=== PATIENT | female | born 1945 | race Caucasian/White ===

== ENCOUNTER 2016-12-26 12:08 | Emergency (ER) | payer OTHER ==
[~2016-12-26] VITALS: Ht 154.9 cm; Wt 72.6 kg
--- NOTE | ~2016-12-26 | CR281 ---
[facility] A Service of [facility] & [facility] RADIOLOGY TEXT RESULTS PATIENT: YAMILKA CASTLE LOCATION: [facility] : 43 UNIT #: [id number] AGE: [address]: Sayra Harkins SEX: F ORDER DR: [id number] [facility] [address] [place], [place] [address] [id number] E MR#: [id number] Acc #: [id number] NAME: YAMILKA CASTLE : 1945 SEX: F STUDY DATE/TIME: 12/26/2016 13:05 UNIT: [facility] ROOM: STUDY DESCRIPTION: CR Wrist Min 3 View Lt Attending Physician: Sayra Harkins Pa-C Ordering Physician: Ed Zia Fuentes M.D. Primary Care Physician: Franklin Ralph M.D. MEDICAL IMAGING REPORT This report is preliminary unless electronic signature is present EXAM Left wrist series, 12/26/2016. HISTORY Trauma. Pain today. Patient fell. Left hand/left wrist pain. FINDINGS AP lateral and oblique radiographs the left wrist are presented. Complete probably slightly comminuted transverse/oblique fracture involving the distal radius. The fracture fragment measures approximately 2.5 cm x 1.5 cm. There is a dominant longitudinal fracture plane extending into the mid to ulnar aspect of the radial articular surface. There may be smaller less pronounced fracture planes entering the more radial and anterior aspects of the radial articular surface. The dominant fracture fragment is slightly displaced proximally by about a millimeter. There is no significant distraction of fracture fragments. There may be some mild anterior angulation of the dominant distal radial fragment. The proximal carpal row remains aligned with the radial articular surface. No other fractures are seen. Generalized bony demineralization. Moderate degenerative change basal joint of thumb. Soft tissue swelling around the wrist but no soft tissue defect, subcutaneous air or subcutaneous radiodense foreign body. Please see associated hand series for additional assessment. Dictated by... Primo Resendiz M.D. THIS IS AN ELECTRONICALLY VERIFIED REPORT Primo Resendiz M.D. at 12/28/2016 10:02 PM BRIDGER/della [facility] A Service of [facility] & [facility] RADIOLOGY TEXT RESULTS PATIENT: YAMILKA CASTLE LOCATION: [facility] : 44 UNIT #: [id number] AGE: [address]: Sayra Harkins SEX: F ORDER DR: TD: 12/26/2016 20:54 JOB #: [id number] MEDICAL IMAGING REPORT Page 1 of 1 COPY
--- NOTE | ~2016-12-26 | CR141 ---
[facility] A Service of [facility] RADIOLOGY TEXT RESULTS PATIENT: YAMILKA CASTLE LOCATION: [place] : 44 UNIT #: [id number] AGE: [address]: Sayra Harkins SEX: F ORDER DR: [id number] [facility] [address] [place], [place] [address] [id number] E MR#: [id number] Acc #: [id number] NAME: YAMILKA CASTLE. : 1945 SEX: F STUDY DATE/TIME: 12/26/2016 13:04 UNIT: [facility] ROOM: STUDY DESCRIPTION: CR Hand Min 3 Views Lt Attending Physician: Sayra aHrkins Pa-C Ordering Physician: Brendan Fuentes M.D. Primary Care Physician: Franklin Ralph M.D. MEDICAL IMAGING REPORT This report is preliminary unless electronic signature is present EXAM Left hand series, 12/26/2016. HISTORY Trauma. Today. Patient fell. Pain left hand/wrist. FINDINGS AP, lateral, oblique radiographs of the left hand are presented. Patient unable to remove ring from 4th digit. A portion of the proximal phalanx is obscured on all views. Generalized bony demineralization. Mildly comminuted complete distal radial fracture. There is a dominant transverse/oblique fracture plane about 1.7 cm from the radial articular surface. I believe there is a longitudinal fracture plane along the mid to ulnar aspect of the radial articular surface. The dominant radial fracture fragment may be slightly depressed approximately by about a millimeter. It is angled slightly anteriorly. No significant distraction. On the lateral view, there are faint 1-2 mm linear calcifications projecting along the posterior aspect of the proximal carpal row. I see no specific fracture donor sites for these calcifications but they could represent small chip fractures from the distal radius. The carpal bones, themselves appear intact. [id number] degenerative change at basal joint of thumb. Tomz-zb-ippgoktr generalized narrowing of the interphalangeal joint spaces. Soft tissue swelling at the wrist, most pronounced posteriorly. Soft tissue swelling 4th digit distal to the patient's ring, likely chronic in time course. Correlate with exam. Dictated by... Primo Resendiz M.D. [facility]. [facility] A Service of [facility] RADIOLOGY TEXT RESULTS PATIENT: YAMILKA CASTLE LOCATION: [facility] #: [id number] : 43 UNIT #: [id number] AGE: [address]: Sayra Harkins SEX: F ORDER DR: THIS IS AN ELECTRONICALLY VERIFIED REPORT Primo Resendiz M.D. at 12/28/2016 10:02 PM [place] TD: 12/26/2016 20:31 JOB #: [id number] MEDICAL IMAGING REPORT Page 1 of 1 COPY
--- NOTE | ~2016-12-26 | CT71 ---
[facility] A Service [facility][1] RADIOLOGY TEXT RESULTS PATIENT: YAMILKA CASTLE LOCATION: [facility] : 44 UNIT #: [id number] AGE: [address]: Sayra Harkins SEX: F ORDER DR: [id number] [id number] [facility] [place], [place] [address] [id number] E MR#: [id number] Acc #: [id number] NAME: YAMILKA CASTLE. : 1945 SEX: F STUDY DATE/TIME: 12/26/2016 14:49 UNIT: [facility] ROOM: STUDY DESCRIPTION: CT Head Wo Contrast Attending Physician: Sayra Harkins Pa-C Ordering Physician: Ed Doctor [id number] [facility] Primary Care Physician: Franklin Ralph M.D. MEDICAL IMAGING REPORT This report is preliminary unless electronic signature is present EXAM Head CT without contrast COMPARISON 04/12/2009 HISTORY Patient fell with head injury this afternoon. TECHNIQUE Axial images were obtained without contrast. This CT exam was performed with one or more of the following radiation dose reduction techniques: automatic exposure control, adjustment of mA and/or kV according to patient size, and iterative reconstruction. FINDINGS Mild chronic ischemic changes are seen around ventricles. There is no evidence of mass lesion, hemorrhage or edema. No midline shift is noted. Extraaxial structures are unremarkable. IMPRESSION Mild chronic ischemic changes around ventricles. No acute findings. Dictated by... Eric Contreras M.D. THIS IS AN ELECTRONICALLY VERIFIED REPORT Eric Contreras M.D. at 12/31/2016 2:13 PM RLF/ea [facility] A Service [facility][1] RADIOLOGY TEXT RESULTS PATIENT: YAMILKA CASTLE LOCATION: [facility] : 43 UNIT #: [id number] AGE: [address]: Sayra Harkins SEX: F ORDER DR: TD: 12/26/2016 22:28 JOB #: [id number] MEDICAL IMAGING REPORT Page 1 of 1 COPY
[~2016-12-26 12:08] MED LIST: ACETAMINOPHEN PO; ACTOPLUS; ACTOPLUS PO; AMITRYPTYLINE PO; AVANDAMET PO; BACTRIM 400-801 TA1 PO; CAPOZIDE PO; CENTRUM PO; CLINORIL PO; COLACE PO; KCL PO; KEFLEX500 MG PO; LISINOPRIL PO; LORTAB 10-5001 EACH PO; MAG-OXIDE400 MG PO; NEXIUM PO; NOVOLOG MIX 70/10 ML INJ; OYSTER CALCIUM500 MG PO; PREDNISONE1 MG PO; PREMARIN PO; PRILOSEC PO; REQUIP1 MG PO; SYNTHROID PO; TRAZODONE PO; VICODIN 5/1 TAB 5/50 PO; VICODIN PO; ZESTORETIC 20/11 TAB PO
== END 2016-12-26 15:46 | disposition home or self-care (01) ==
LOC: CED 12:08 → CFTX 12:08 → CED 15:12 → CFTX 15:12
DX: S52.502A Unspecified fracture of the lower end of left radius, initial encounter for closed fracture (principal); E11.9 Type 2 diabetes mellitus without complications; I10 Essential (primary) hypertension; D64.9 Anemia, unspecified; W01.0XXA Fall on same level from slipping, tripping and stumbling without subsequent striking against object, initial encounter; Y92.9 Unspecified place or not applicable
CPT/HCPCS: 29125; 70450; 73110; 73130; 99284

== ENCOUNTER 2016-12-29 14:50 | Emergency (ER) | payer OTHER | END 2016-12-29 18:00 | disposition home or self-care (01) | LOC: CFTX 14:50 → CED 14:50 → CFTX 17:53 | DX: S52.502G Unspecified fracture of the lower end of left radius, subsequent encounter for closed fracture with delayed healing (principal); E11.9 Type 2 diabetes mellitus without complications; I10 Essential (primary) hypertension; Z90.49 Acquired absence of other specified parts of digestive tract; Z90.710 Acquired absence of both cervix and uterus; Z88.5 Allergy status to narcotic agent; Z88.1 Allergy status to other antibiotic agents; Z88.8 Allergy status to other drugs, medicaments and biological substances; X58.XXXA Exposure to other specified factors, initial encounter | CPT/HCPCS: 29125; 99282 ==